=== PATIENT | male | born 1990 | race Caucasian/White ===

== ENCOUNTER → 2020-10-04 | Outpatient (CLI) | payer OTHER, SELFPAY | LOC: M LABSMTC 13:22 | PROVIDERS: ATTEND Pediatrics | DX: Z20.828 Contact with and (suspected) exposure to other viral communicable diseases (principal) ==

== ENCOUNTER 2025-07-21 20:19 | Emergency (ER) | payer SELFPAY ==
[~2025-07-21] VITALS: Ht 172.7 cm; Wt 62.4 kg
[2025-07-22] MEDS ORDERED: PERC5TAB12 PO (00:07)
[2025-07-22] MEDS ORDERED: AMOX875T2 PO (00:07)
[2025-07-22] MEDS: PERCOCET 5MG/325MG TAB PO ONE (00:26)
[2025-07-22] MEDS: OXYCODONE/APAP 5MG/325MG(HOME DOSE PACK) PO ONE (00:27)
[2025-07-22] MEDS: AUGMENTIN 875 MG TAB PO ONE (00:27)
[2025-07-22 00:32] VITALS: BP 118/87; TEMP 97.7; O2SAT 97
== END 2025-07-22 00:32 | disposition home or self-care (01) ==
LOC: M ED 20:19
DX: S02.2XXA Fracture of nasal bones, initial encounter for closed fracture (principal); S02.40CA Maxillary fracture, right side, initial encounter for closed fracture; S02.40DA Maxillary fracture, left side, initial encounter for closed fracture; S00.33XA Contusion of nose, initial encounter; Y04.0XXD Assault by unarmed brawl or fight, subsequent encounter; M47.812 Spondylosis without myelopathy or radiculopathy, cervical region; M25.78 Osteophyte, vertebrae; M50.323 Other cervical disc degeneration at C6-C7 level; M50.322 Other cervical disc degeneration at C5-C6 level; Y92.410 Unspecified street and highway as the place of occurrence of the external cause; Y93.89 Activity, other specified; Y99.9 Unspecified external cause status; Z79.2 Long term (current) use of antibiotics; Z79.899 Other long term (current) drug therapy

== ENCOUNTER 2025-08-17 11:33 | Emergency (ER) | payer SELFPAY ==
[~2025-08-17] VITALS: Ht 172.7 cm; Wt 59.9 kg
[~2025-08-17 11:33] MED LIST: AMOX875T2 PO; PERC5TAB12 PO
[2025-08-17 13:51] LABS: BASO # 0.0 10^3/uL (0.0-0.2); BASO % 0.5 % (0.0-1.0); EOS # 0.0 10^3/uL (0.0-0.5); EOS % 0.2 % (0.0-3.0); LYMPH # 1.5 10^3/uL (1.5-5.0); LYMPH % 18.2 % (24.0-44.0); MONO # 0.6 10^3/uL (0.0-0.8); MONO % 7.6 % (2.0-8.0); NEUTROPHILS # 5.9 10^3/uL (1.5-8.5); NEUTROPHILS % 73.1 % (36.0-66.0); PLATELET COUNT, AUTOMATED 283 10^3/uL (150-450)
[2025-08-17 14:17] LABS: ALT/SGPT 24 U/L (7.0-40); AST/SGOT 28 U/L (<34); CALCIUM LEVEL 10.0 MG/DL (8.5-10.1); CARBON DIOXIDE LEVEL 27 MMOL/L (20-31); CHLORIDE LEVEL 104 MMOL/L (98-107); CREATININE FOR GFR 0.75 MG/DL (0.70-1.30); GLOMERULAR FILTRATION RATE > 90.0 (>60); POTASSIUM SERUM 5.3 MMOL/L (3.5-5.1); SODIUM LEVEL 141 MMOL/L (136-145)
[2025-08-17] MEDS: PATIROMER SORBITEX CALCIUM 8.4GM POWDER PACKET PO ONE (17:52)
[2025-08-17 18:45] VITALS: BP 123/84; TEMP 98.8; O2SAT 98
== END 2025-08-17 18:53 | disposition home or self-care (01) ==
LOC: M ED 11:33
DX: R10.9 Unspecified abdominal pain (principal); R19.5 Other fecal abnormalities; M51.46 Schmorl's nodes, lumbar region; Z79.2 Long term (current) use of antibiotics; Z79.1 Long term (current) use of non-steroidal anti-inflammatories (NSAID)